=== PATIENT | male | born 1935 | race Caucasian/White ===

== ENCOUNTER 2017-03-28 08:35 | Outpatient (CLI) | payer MEDICARE, OTHER | END 2017-03-28 08:36 | disposition home or self-care (01) | LOC: BICMRI 08:35 | PROVIDERS: ATTEND Family Medicine | DX: M54.41 Lumbago with sciatica, right side (principal); M47.896 Other spondylosis, lumbar region; M99.83 Other biomechanical lesions of lumbar region | CPT/HCPCS: 72148 ==

== ENCOUNTER 2018-09-15 07:16 | Outpatient (CLI) | payer MEDICARE, OTHER ==
--- NOTE | 2018-09-15 08:12 | ULT ---
US Abdominal Aorta Aneurysm: 09/15/2018 12:00 AM CLINICAL HISTORY: Abdominal bruit. STUDY: Limited abdominal ultrasound of the aorta. TECHNIQUE: A limited ultrasound of the abdominal aorta was performed. Spectral analysis of the Dopple r waveform was performed. COMPARISON: CT abdomen/pelvis 11/06/2013 FINDINGS: The aorta is normal in caliber without evidence of aneurysmal dilatation and measures 3.6 cm in great est dimension. The common iliac arteries are normal in caliber. A large anechoic cyst is seen in the right kidney. IMPRESSION: 1. No evidence of abdominal aortic aneurysm. 2. Right renal cyst
== END 2018-09-15 07:17 | disposition home or self-care (01) ==
LOC: SCSULT 07:16
PROVIDERS: ATTEND Family Medicine
DX: I71.4 Abdominal aortic aneurysm, without rupture (principal); N28.1 Cyst of kidney, acquired
CPT/HCPCS: 76706

== ENCOUNTER 2022-03-28 17:30 | Outpatient (CLI) | payer MEDICARE, OTHER | END 2022-03-28 17:31 | disposition home or self-care (01) | LOC: SLEEPLAB 17:30 | PROVIDERS: ATTEND Internal Medicine Critical Care Medicine | DX: G47.33 Obstructive sleep apnea (adult) (pediatric) (principal); R06.83 Snoring; G47.00 Insomnia, unspecified | CPT/HCPCS: 95800 ==